=== PATIENT | male | born 1945 | race Caucasian/White ===

== ENCOUNTER 2016-06-04 19:24 | Emergency (ER) | payer OTHER ==
[~2016-06-04] VITALS: Ht 172.7 cm; Wt 81.6 kg
[2016-06-04 20:15] LABS: BASOPHIL % 0.3 % (0-2); PLATELET COUNT 232 x10^3mcL (130-400); RED CELL DISTRIBUTION WIDTH 14.1 % (11.5-14.5)
[2016-06-04 20:21] LABS: CALCIUM 8.9 mg/dL (8.5-10.1); CHLORIDE SERUM 100 mmol/L (98-107); CREATININE SERUM 1.1 mg/dL (0.7-1.3); GFR1 > 60 mL/min; GLUCOSE SERUM 154 mg/dL (74-106); SODIUM SERUM 138 mmol/L (136-145)
[2016-06-04 20:25] LABS: ALKALINE PHOSPHATASE 94 U/L (46-116); ALT/SGPT 26 U/L (16-63); AMYLASE 66 U/L (25-115); AST/SGOT 21 U/L (15-37); BILIRUBIN TOTAL 0.4 mg/dL (0.20-1.00); LIPASE 122 IU/L (73-393); TOTAL PROTEIN, SERUM 7.6 g/dL (6.4-8.2)
[2016-06-04 20:35] LABS: CK-MB 0.5 ng/mL (0-3.6)
[2016-06-04 22:34] LABS: microscopic required? NO
[2016-06-04 23:11] LABS: UA SPECIFIC GRAVITY 1.015 (1.005-1.035); urine erythrocyte NEGATIVE (NEGATIVE)
[2016-06-04 23:59] VITALS: BP 150/76
== END 2016-06-04 23:59 | disposition home or self-care (01) ==
LOC: ED 19:24
PROVIDERS: Emergency Medicine
DX: K80.50 Calculus of bile duct without cholangitis or cholecystitis without obstruction (principal)
CPT/HCPCS: 83880; J1885; J3010; Q0092; Q0162

== ENCOUNTER 2016-12-01 22:35 | Emergency (ER) | payer OTHER ==
[2016-12-02] LABS: BASOPHIL % 0.3 % (0-2); PLATELET COUNT 210 x10^3mcL (130-400)
[2016-12-02 00:06] LABS: CALCIUM 8.6 mg/dL (8.5-10.1); CARBON DIOXIDE 23.6 mmol/L (21-32); CHLORIDE SERUM 102 mmol/L (98-107); CREATININE SERUM 1.1 mg/dL (0.7-1.3); GLUCOSE SERUM 122 mg/dL (74-106); POTASSIUM SERUM 3.5 mmol/L (3.5-5.1); SODIUM SERUM 137 mmol/L (136-145)
[2016-12-02 00:07] LABS: ALBUMIN 3.6 g/dL (3.4-5.0); ALKALINE PHOSPHATASE 95 U/L (46-116); ALT/SGPT 28 U/L (16-63); AMYLASE 70 U/L (25-115); AST/SGOT 20 U/L (15-37); BILIRUBIN TOTAL 0.4 mg/dL (0.20-1.00); LIPASE 133 IU/L (73-393); TOTAL PROTEIN, SERUM 7.4 g/dL (6.4-8.2)
[2016-12-02 00:44] LABS: microscopic required? NO
[2016-12-02 00:55] LABS: urine erythrocyte NEGATIVE (NEGATIVE)
[2016-12-02 02:25] VITALS: BP 132/64
== END 2016-12-02 02:25 | disposition home or self-care (01) ==
LOC: ED 22:35
PROVIDERS: Emergency Medicine
DX: K59.00 Constipation, unspecified (principal); R10.9 Unspecified abdominal pain; T40.605A Adverse effect of unspecified narcotics, initial encounter; Y92.89 Other specified places as the place of occurrence of the external cause
CPT/HCPCS: 83880; J1885; J2270; J2405; J7030